=== PATIENT | male | born 1960 | race Two or more races ===

== ENCOUNTER 2024-02-23 09:53 | Outpatient (AMB) | payer MEDICARE, MEDICAID, SELFPAY ==
[2024-02-23 10:38] VITALS: BP 130/83; PULSE 80; RESP 19; TEMP 36.4; O2SAT 97; BMI 40.4
--- NOTE | 2024-02-23 10:38 | ORTHONT_ITS ---
Vital signs 02/23/24 10:38 Height 1.8 m Height Method Stated Weight 130.776 kg Weight Measurement Method Standing Scale BMI 40.4 BP 130/83 Blood Pressure Source Automatic Cuff Blood Pressure Location Right Upper Arm Position Sitting Respiration 19 Pulse 80 Pulse Source Monitor Temp 97.6 F Temp Source Temporal Artery Scan Pulse Oximetry (%) 97 Oxygen Delivery Method Room Air Med/Allergies Allergies & Medications Allergies NKA Allergy (Unknown, Uncoded 02/23/24 10:39) Medication Reconciliation Benazepril Hcl * (LOTENSIN *) 10 mg PO HS #0 tabs 11/03/13 [History Confirmed 02/23/24] Diclofenac Sodium/Misoprostol (Diclofenac-Misoprost 75-0.2 Tb) 1 tab PO QAM ##0 11/03/13 [History Confirmed 02/23/24] Doxazosin Mesylate 8 mg PO QPM ##0 11/03/13 [History Confirmed 02/23/24] finasteride 5 mg tablet 5 mg PO HS ##0 11/03/13 [History Confirmed 02/23/24] apixaban 5 mg tablet (Eliquis) 5 mg PO BID #30 tabs 03/07/21 [Rx Confirmed 02/23/24] amiodarone 200 mg tablet 200 mg PO QDAY 09/15/23 [History Confirmed 02/23/24] amlodipine 2.5 mg tablet 2.5 mg PO QDAY 09/15/23 [History Confirmed 02/23/24] atorvastatin 40 mg tablet 40 mg PO QDAY 09/15/23 [History Confirmed 02/23/24] ezetimibe 10 mg tablet 10 mg PO QDAY 09/15/23 [History Confirmed 02/23/24] hydrochlorothiazide 50 mg tablet 50 mg PO Q OTHER DAY 09/15/23 [History Confirmed 02/23/24] metoprolol succinate 50 mg capsule sprinkle, ext. release 24 hr 50 mg PO QDAY 09/15/23 [History Confirmed 02/23/24] Subjective Visit Visit for: follow up visit and knee Immunization / Flu Flu Vaccine in the Last 12 Months: Yes Flu Vaccine Exclusion Criteria: Already Received History of Present Illness Chief complaint: PRE-OP Ab is a pleasant 62-year-old male with right knee pain. He has a history of a left total knee replacement as well as a left hip replacement. He has been having pain for quite a while. He had a scope in 2004. He has had 1 injection in the past which helped for over a year. He reports the pain is terrible. The last injection only lasted for 3 weeks. Patient is using a walker because of the pain. He has lost 4 pounds since we last saw him Personal History Occupation: RETIRED Hobbies: NONE Red flag PMH: none Pain Pain level (0-10): 8 Pain duration: CONSTANT Pain location: inside (medial), outside (lateral), anterior and posterior Pain quality: sharp, dull and aching Pain timing: increases with activity and stairs Associated signs & symptoms: none Ambulatory data Ambulatory device: walker Treatments Number of previous injections: 1 Improvement with previous injections: No Improvement with PT: No Improvement with NSAIDS: n/a Review of Systems Review of Systems: All systems negative unless otherwise noted in HPI. Exam Exam Patient is in no acute distress and is cooperative with the examination today. Breathing is nonlabored. Patient has a normal mood and affect. Bilateral extremities were evaluated and demonstrates sensation intact to light touch. Palpable pedal pulses are present. No significant edema is present. Bilateral hips were examined. The patient has no pain with log roll of the hips. Internal rotation to 30 degrees and external rotation to 30 degrees is painless. Negative FADIR. Left knee was examined today.Incision is clean dry intact. Range of motion 0 to 110 degrees The right knee was also examined. The right knee is in [varus] alignment. Range of motion from [0-115] degrees. Knee is stable to varus and valgus as well as AP translation with <5mm. Patient has a [negative] [place]. There is [no] pain with patellofemoral compression and [no] crepitus noted. The knee is [tender] to palpation [medially]. X-rays demonstrate significant right joint space narrowing medially. There is complete obliteration of the joint space. Assessment and Plan Problem List (1) Arthritis of right knee: Status: Acute Plan: Patient is a 62-year-old male with severe right knee arthritis and varus deformity. We discussed nonoperative And operative options. He is failed conservative treatment including injections and Tylenol. He cannot take anti- inflammatories because of his blood thinner. He is walker dependent and is using a brace at this time. We thus discussed total knee replacement is a reasonable option. He was able to obtain cardiac clearance. He is also stopped his Eliquis 4 days before surgery The nature and purpose of the total knee replacement, alternative method(s) of treatment, the material risks involved, and the possibility of complications were fully explained to the patient. The patient does NOT have any of the following contraindications to TKA: - Active infection of the knee joint, OR - Active systemic bacteremia, OR - Active skin infection or open wound at surgical site, OR - Neuropathic arthritis, OR - Severe, rapidly progressive neurological disease, OR - Severe medical condition that makes risks of surgery outweigh the potential benefit The patient was told the most common risks and complications associated with a total knee replacement include, but are not limited to: blood clots in the leg, fatal pulmonary embolism, dislocation of the prosthesis, intraoperative and postoperative fractures of the femur or tibia, infection, failure of the prosthesis or grafting materials, complications from anesthesia, reactions to blood transfusions, postoperative leg length inequality, instability of the knee replacement, nerve damage or injury, vascular injury, delayed wound healing, infection, other injury or even . In addition, there are risks associated with anesthesia given during this operation. Also, the patient was told that after undergoing a total knee replacement there may still be persistent pain or disability. The patient was informed that the success of this operation in part depends upon the mechanical devices which are going to be implanted and that these devices can fail or malfunction, and may need to be repaired or replaced and there are no guarantees as to the longevity of this device or its parts and that it or its parts could fail prematurely. The patient was also notified that during the course of surgery, there may be a need to use bone graft from donors, and that any bone graft used will be carefully screened for communicable diseases, including AIDS, hepatitis, Rolf-Creutzfeldt, or other diseases, but despite the screening procedures, there is a small chance that they could contract one of these diseases. Finally, the patient was asked to follow completely and fully with all advice and recommended treatments, and that recovery and ultimate outcome are affected by their compliance with recommended treatment. We discussed the risks, benefits and treatment alternatives, and the patient is interested in proceeding with surgery. We will try to set this up as expeditiously as possible. Office Procedures GNS Level of Care Nursing/Assessment Patient Status: Established Patient Nursing Assessment/Reassesment: Medication Reconciliation, Update PMH in EMR and Vital Signs Coordination of Care: Complex Care and Chronic Disease 1-5, Education Complex Pt/Fam, Consent,records obtained, informed consent, Results/Orders obtained and Staff clarify orders Established Patient Charge Established Patient Point Assignment: 95 Established Patient Point Charge: EP Level 3 (80-115) Past Medical History Past Medical History Have you ever been diagnosed with any of the following: Cardiology Problems Hypertension: Yes Respiratory Problems Smoking: No Smoking Exposure: No
== END 2024-02-23 11:03 | disposition home or self-care (01) ==
LOC: HODSRG 09:53
PROVIDERS: PCP Internal Medicine; Referring Provider Internal Medicine; Supervising Provider Orthopaedic Surgery Adult Reconstructive Orthopaedic Surgery; Visit Provider Orthopaedic Surgery Adult Reconstructive Orthopaedic Surgery
DX: M17.11 Unilateral primary osteoarthritis, right knee (principal); M21.161 Varus deformity, not elsewhere classified, right knee; Z96.652 Presence of left artificial knee joint; Z96.642 Presence of left artificial hip joint; I10 Essential (primary) hypertension
CPT/HCPCS: 99213; G0463

== ENCOUNTER → 2024-02-26 | Outpatient (CLI) | payer BC, SELFPAY ==
--- NOTE | 2024-02-26 08:51 | XR_ITS ---
Examination: CT right lower extremity, without contrast. 2-D sagittal reconstructions. 2-D coronal reconstructions. 3-D reconstructions. Date and time of exam:February 26, 2024 1012 hours INDICATIONS: Right knee pain several years CTDI: vol (mGy):30.21 DLP: (mGycm):1203 Technique: Multiple 1.25 mm axial sections of the right lower extremity without intravenous contrast have been obtained. 2-D sagittal and coronal reconstructions have been obtained. 3-D reconstructions have been obtained. Low dose protocols were performed. One or more of the following dose reduction techniques were used; automated exposure control, adjustment of the mA and/or KV according to patient size, use of iterative reconstruction technique. Findings: Significant osteopenia Mild to moderate narrowing right hip joint No right hip fracture or dislocation, no avascular necrosis Advanced right knee tricompartment osteoarthritis, severe narrowing medial joint space No fracture No patellar dislocation IMPRESSION: Severe right knee tricompartment osteoarthritis
== END | disposition home or self-care (01) ==
PROVIDERS: PCP Internal Medicine; Referring Provider Orthopaedic Surgery Adult Reconstructive Orthopaedic Surgery; Visit Provider Orthopaedic Surgery Adult Reconstructive Orthopaedic Surgery
DX: M17.11 Unilateral primary osteoarthritis, right knee (principal)
CPT/HCPCS: 73700

== ENCOUNTER → 2024-03-08 | Outpatient (CLI) | payer MEDICARE, SELFPAY ==
--- NOTE | 2024-03-08 12:30 | XR_ITS ---
Examination: CT right lower extremity, without contrast. 2-D sagittal reconstructions. 2-D coronal reconstructions. 3-D reconstructions. Date and time of exam:March 08, 2024 1314 hours INDICATIONS: Right knee osteoarthritis pain years CTDI: vol (mGy):15.4 DLP: (mGycm):1278 Technique: Multiple 1.25 mm axial sections of the right lower extremity without intravenous contrast have been obtained. 2-D sagittal and coronal reconstructions have been obtained. 3-D reconstructions have been obtained. Low dose protocols were performed. One or more of the following dose reduction techniques were used; automated exposure control, adjustment of the mA and/or KV according to patient size, use of iterative reconstruction technique. Findings: Severe osteopenia Mild to moderate narrowing right hip joint No right hip fracture or dislocation, no avascular necrosis Severe right knee tricompartment osteoarthritis No acute fracture No avascular necrosis IMPRESSION: Severe right knee tricompartment osteoarthritis
== END | disposition home or self-care (01) ==
PROVIDERS: PCP Internal Medicine; Referring Provider Orthopaedic Surgery Adult Reconstructive Orthopaedic Surgery; Visit Provider Orthopaedic Surgery Adult Reconstructive Orthopaedic Surgery
DX: M17.11 Unilateral primary osteoarthritis, right knee (principal)
CPT/HCPCS: 73700

== ENCOUNTER 2024-03-09 05:40 | Day surgery (SDC) | payer MEDICARE, SELFPAY ==
[2024-03-04 09:35] VITALS: BMI 40.1
--- NOTE | 2024-03-04 09:54 | EKG_ITS ---
[facility] Test Date: 2024-03-04 Pat Name: MELODY WAYNE Department: Room: - Gender: Male Broom Man: DENYS : 1960 Requested By: Robel Stephens Order Number: [id number] Reading MD: Robel Stephens Measurements Intervals [place] Rate: 72 P: 3 OK: 166 QRS: -28 QRSD: 118 T: 10 QT: 397 QTc: 436 Interpretive Statements SINUS RHYTHM BORDERLINE LEFT AXIS DEVIATION LOW QRS VOLTAGE IN PRECORDIAL LEADS PATTERN CONSISTENT WITH PULMONARY DISEASE MODERATE INTRAVENTRICULAR CONDUCTION DELAY No previous ECG available for comparison /store/S0/[id number].pdf
[2024-03-04 11:50] LABS: Basophils # (Auto) 0.1 Thou/mm3 (0.0-0.2); Basophils % (Auto) 1 % (0-2.5); Eosinophils # (Auto) 0.2 Thou/mm3 (0.0-0.5); Eosinophils % (Auto) 2 % (0-10); Hematocrit 38.8 % (41.0-53.0); Immature Granulocytes % (Auto) 0 % (0-0); Immature Granulocytes Auto 0.02 Thou/mm3 (0.00-0.00); Lymphocytes # (Auto) 1.6 Thou/mm3 (1.0-4.8); Lymphocytes % (Auto) 22 % (10-50); Mean Corpuscular HGB Conc 33.5 g/dl (31.0-37.0); Mean Corpuscular Volume 92 fL (80-100); Monocytes # (Auto) 0.6 Thou/mm3 (0.0-0.8); Monocytes % (Auto) 9 % (0-12); Neutrophils # (Auto) 4.6 Thou/mm3 (1.8-7.7); Neutrophils % (Auto) 66 % (37-80); Nucleated Red Blood Cell % 0 /100 WBC (0); Platelet Count 270 Thou/mm3 (140-440); RDW Standard Deviation 43.7 fL (35.1-43.9)
[2024-03-04 11:53] LABS: Partial Thromboplastin Time 26.6 Seconds (22.0-36.0); Prothrombin Time 11.3 Seconds (9.0-12.2)
[2024-03-04 12:03] LABS: Alanine Aminotransferase 12 U/L (10-49); Albumin, Serum 4.9 gm/dL (3.4-4.8); Alkaline Phosphatase 141 U/L (46-116); Anion Gap 6 (7-16); Aspartate Amino Transferase 13 U/L (0-34); BUN/Creatinine Ratio 13 Ratio (12-20); Bilirubin,Total 0.7 mg/dL (0.3-1.2); Blood Urea Nitrogen 13 mg/dL (9-23); Calcium 9.3 mg/dL (8.3-10.6); Calcium (Corrected) 9.3 mg/dL (8.5-10.1); Carbon Dioxide 25.7 mMol/L (20.0-31.0); Chloride 105 mMol/L (98-107); Estimated Creatinine Clearance 102.9 mL/min (>60); Globulin 2.4 gm/dL (2.3-3.5); Glucose 82 mg/dL (74-106); Osmolality,Calculated 272 (275-295); Potassium 3.7 mMol/L (3.4-5.1); Sodium 137 mMol/L (136-145); Total Protein 7.3 gm/dL (5.7-8.2); eGFR > 60 See Note
--- NOTE | 2024-03-08 14:29 | SUR.PREOP ---
Cardiac history and records reviewed with Dr Stephens.
[2024-03-09] VITALS (16 sets, daily range): BP systolic 100–151; BP diastolic 67–92; PULSE 74–95; RESP 12–18; TEMP 36.3–36.8; O2SAT 95–99; BMI 40.0
[2024-03-09] MEDS: PREGABALIN 75 MG CAPSULE PO (06:28)
[2024-03-09] MEDS: ACETAMINOPHEN 325 MG TABLET 650 MG PO (06:28)
[2024-03-09] MEDS: MELOXICAM 7.5 MG TABLET PO (06:28)
[2024-03-09] MEDS: RINGERS LACTATED 1000 ML 1,000 ML 20 ML IV (06:31)
--- NOTE | 2024-03-09 07:15 | CHAP ---
Gave a word of encouragement and prayer.
--- NOTE | 2024-03-09 09:32 | SUR.OPER ---
IMPLANTS: JUAN TRIATHLON X3 TIBIAL BEARING INSERT- REF: [id number] LOT: [id number] JESSE: 6 TYP: TOM THKNS: 16 MM EXP: 04/05/28 X 1 IMPLANT JUAN [employer] TRITANIUM TIBIAL COMPONENTS REF:[id number] LOT: [id number] JESSE:#6 EXP. 12/22/28 X 1 IMPLANT
--- NOTE | 2024-03-09 09:41 | SUR.OPER ---
(Marianne) updated on case status/progress via phone by Claire GARCIA at approx. [phone].
--- NOTE | 2024-03-09 10:06 | SUR.PHASEI ---
Addendum entered by Betina Maciel RN 03/09/24 11:13: post spinal anesthesia assessment, patient has dermatome sensation at L1-groin, will monitor patient Original Note: 1006 Patient arrived to recovery resting comfortably in [facility], awake and talking with staff, oxygen therapy initiated nasal cannula 2L, breathing unlabored, vital signs stable, denies pain, dressing intact to right knee; prineo, abd, webril, noble wraps, no bleeding noted, bilateral dorsalis pedis pulses present when palpated, post patient has good circulation to right lower extremity; skin color normal for patient, warm to touch, lung sounds clear upon auscultation, report received from Dr. Stephens and Leander GARCIA
--- NOTE | 2024-03-09 10:14 | ESOP_ITS ---
Date of Procedure 03/09/24 Pre Op Diagnosis Right knee osteoarthritis Post Op Diagnosis Right knee osteoarthritis Procedure Indication: The patient is a 63 year old who has a long history of right knee pain. X-rays show degenerative arthritis involving the knee. Over the past several years the patient has had increasing pain, progressive limitation in function. He has failed conservative measures including activity modification, physical therapy, injections, anti-inflammatories, and assistive devices. After a lengthy discussion of the risks and benefits, the patient presents now for total knee replacement. The nature and purpose of the total knee replacement, alternative method(s) of treatment, the material risks involved, and the possibility of complications were fully explained to the patient. The patient was told the most common risks and complications associated with a total knee replacement include, but are not limited to blood clots in the leg, fatal pulmonary embolism, dislocation of the prosthesis, intraoperative and postoperative fractures of the femur or tibia, infection, failure of the prosthesis or grafting materials, complications from anesthesia, reactions to blood transfusions, postoperative leg length inequality, instability of the knee replacement, nerve damage or injury, vascular injury, delayed wound healing, infections, other injury or even . In addition, there are risks associated with anesthesia given during this operation, temporary or permanent numbness on the skin lateral to the incision can be a complication unique to total knee surgery, and kneeling can be painful after knee replacement surgery. Also, the patient was told that after undergoing a total knee replacement there may still be pain or disability. We discussed with the patient that we will be using a robot-assisted technology. We discussed that there is a possibility of converting to manual instrumentation. The patient was informed that the success of this operation in part depends upon the mechanical devices which are going to be implanted and that these devices can fail or malfunction, and may need to be repaired or replaced and there are no guarantees as to the longevity of this device or its part and that it or its parts could fail prematurely. Finally, the patient was asked to follow completely and fully with all advice and recommended treatments, and that recovery and ultimate outcome are affected by their compliance with recommended treatment. Surgical technique: Patient was marked and consented in the pre-operative area. The patient was brought to the operating room and placed on the operating table in a supine position. Prior to positioning, a timeout procedure was performed between the surgeon, the anesthesiologist, and the nursing staff where the patient and the operative side were identified and confirmed. After adequate general anesthetic was obtained, the right lower extremity was prepped and draped in the usual sterile fashion. A weight based dose of Cefazolin were administered within 1 hour prior to incision. The robot was preregistered and calirated before the incision. The extremity was exsanguinated with an esmarch badge and tourniquet inflated to 250mmHg. A midline incision was made. A median parapatellar arthrotomy was made. The patella was subluxed laterally. A medial release was performed to expose the medial tibia. His femoral and tibial pins were placed through an intra incisional manner for both cases. Every effort was made to ensure that the distalmost aspect of the pin was hung in the second cortex. The arrays were then tightened several times to ensure that it was fixed for the remainder of the case. Both femoral and tibial checkpoints were then placed. We then went through the registration process of the bone. We then assessed the knee deformity and attempted to correct it. We also used the robot to aid in judging laxity in both extension and flexion. Final based on laxity and alignment we changed the preoperative assessment to obtain proper proper implant positioning and to correct deformity. Attention was then placed to the tibia. We made a tibial cut using the robot ensuring that both the MCL and the patella tendon were protected with retractors. THe tibial cut was larger than normal to account for the large tibial defect. We then went to the femur and made the posterior cut followed by the anterior cut and the anterior chamfer. The bone was then removed and we made a distal femur cut and a posterior chamfer cut. We verified all cuts. A trial reduction was performed with a size 5 femoral component and a size 6 keeled tibial component. The patella was cut and sized to a 39. The patella tracked centrally, and no lateral retinacular release was necessary. The trial implants were removed. The arrays, pins, and checkpoints were all removed. We performed a verification that all pins were removed. The cut bone surfaces were lavaged. A size 5 right femoral component, a size 6 keeled tibial component, and a size 39 patella were impacted into position. The knee was felt to be well balanced in the sagittal and coronal plane. The final [2x12] mm cruciate-substituting articular insert was impacted into the tibial tray. The knee was brought out to full extension, flexed up to 120 degrees. It was stable to varus and valgus stress and appropriately balanced in flexion and extension. The wounds were copiously irrigated following deflation of tourniquet. The medial retinaculum was reapproximated with #1 vicryl and quill. The subcutaneous tissues were closed with 0 and 2-0 interrupted Vicryl. The skin was closed with 3-0 Monofilament V loc suture. A sterile dressing was applied. The patient was transferred to a bed and brought to recovery in stable condition. The patient tolerated the procedure well. There were no intraoperative complications. Sponge and needle counts were correct times 2. As the attending surgeon, I attramos I was present and performed the entire operation. Grafts/Implants Size 5 CR Femur Size 6 Tibia 16mm poly CS 49mm patella Findings full thickness cartialge loss and osteophytes Implants frances Pathology / specimen None Pathology comment: none Estimated Blood Loss 150 Condition Stable Disposition same day Surgeon Brian Mock MD Surgical Staff Operation Date: 03/09/24 07:30 Case Staff Anesthesiologist: Robel Stephens RNwarp bleaching vat tender: Aggie Lauren
--- NOTE | 2024-03-09 10:18 | XR_ITS ---
Examination: Knee, right , 3 views Technique: Knee AP, lateral, oblique 3 views Date and time of exam: March 09, 2024 1036 hours INDICATIONS: Postop knee replacement today. FINDINGS: Total right knee replacement Satisfactory alignment Moderate osteopenia No fracture IMPRESSION: Total right knee arthroplasty with satisfactory alignment
--- NOTE | 2024-03-09 10:40 | SUR.PHASEI ---
1040 XRAY complete per MD order
--- NOTE | 2024-03-09 10:51 | SUR.PHASEI ---
1058 patient ate a jello and drinking apple juice
--- NOTE | 2024-03-09 10:57 | SUR.PHASEI ---
patients family update on patient condition and they states they were running errands and would be back to the hospital in an hour or so
[2024-03-09] MEDS: DICLOFENAC SODIUM 75 MG PO (11:12)
--- NOTE | 2024-03-09 11:50 | SUR.PHASEII ---
pt awake, alert, able to follow commands, breathing unlabored, dressing to right lower extremity clean, dry, and intact, report from Betina Felix RN
--- NOTE | 2024-03-09 12:27 | SUR.PHASEII ---
Report to Betina Felix RN
--- NOTE | 2024-03-09 12:34 | SUR.PHASEII ---
1234 PT called as patient post spinal anesthesia is complete, patient has dermatome sensation at S2 perineum
--- NOTE | 2024-03-09 12:37 | SUR.PHASEII ---
1150 Report given to Betina Phillips RN
--- NOTE | 2024-03-09 13:04 | SUR.PHASEII ---
1304 patient voided 100ml in urinal
--- NOTE | 2024-03-09 13:05 | SUR.PHASEII ---
1305 Patient cleared by Physical therapist Dung to proceed with discharge
--- NOTE | 2024-03-09 13:34 | SUR.PHASEII ---
1334 Patient meets discharge criteria from recovery, awake and alert, breathing unlabored, vital signs stable, denies pain, dressing intact; no bleeding noted, patient voided in urinal prior to discharge, denies nausea, patient assisted with dressing into his clothing by this medical technical writer, discharge instructions given to patient and patients daughter and , daughter signed discharge instructions. Patient given all her belongings prior to discharge, transported via wheelchair and left in a private vehicle.
--- NOTE | 2024-03-12 13:43 | PD.ANESPROG ---
Documentation for date of: 03/12/24 POST ANESTHESIA NOTE: Patient had spinal anesthesia and R adductor block for R TKA on 03/09/24. I just called his number for follow up but no answer. Robel Stephens MD Anesthesia Progress Note Progress Note Most recent Vital Signs: Last Vital Signs Temp 97.3 F 03/09/24 12:21 Pulse 91 03/09/24 13:06 Resp 17 03/09/24 13:06 BP 151/92 H 03/09/24 13:06 Pulse Ox 99 03/09/24 13:06 O2 Flow Rate 2 03/09/24 10:51
== END 2024-03-09 13:34 | disposition home or self-care (01) ==
PROVIDERS: Anesthesiology; PCP Internal Medicine; Referring Provider Orthopaedic Surgery Adult Reconstructive Orthopaedic Surgery; Visit Provider Orthopaedic Surgery Adult Reconstructive Orthopaedic Surgery
PROC: (CPT 27447; principal; 2024-03-09 07:30)
DX: M17.11 Unilateral primary osteoarthritis, right knee (principal); Z01.810 Encounter for preprocedural cardiovascular examination
CPT/HCPCS: 27447; 20985; 36415; 73560; 80053; 85025; 85610; 85730; 93005; 97162; A4217; C1713; C1776; J0171; J0690; J1100; J1200; J1885; J2250; J2371; J2704; J2795; J3010; J3490; J7030; J7120; A4648; A4649; A9270

== ENCOUNTER 2024-03-22 09:58 | Outpatient (AMB) | payer MEDICARE, MEDICAID, SELFPAY ==
[2024-03-22 10:38] VITALS: BP 97/59; PULSE 78; RESP 19; TEMP 36.3; O2SAT 97; BMI 40.2
--- NOTE | 2024-03-22 10:38 | PD.ORTHCLVIS ---
Vital signs 03/22/24 10:38 Height 1.8 m Height Method Stated Weight 130.379 kg Weight Measurement Method Standing Scale BMI 40.2 BP 97/59 L Blood Pressure Source Automatic Cuff Blood Pressure Location Left Upper Arm Position Sitting Respiration 19 Pulse 78 Pulse Source Monitor Temp 97.4 F Temp Source Temporal Artery Scan Pulse Oximetry (%) 97 Oxygen Delivery Method Room Air Med/Allergies Allergies & Medications Allergies No Known Allergies Allergy (Verified 03/22/24 10:38) Medication Reconciliation Benazepril Hcl * (LOTENSIN *) 40 mg PO HS #0 tabs 11/03/13 [History Confirmed 03/22/24] Doxazosin Mesylate 8 mg PO QPM ##0 11/03/13 [History Confirmed 03/22/24] finasteride 5 mg tablet 5 mg PO HS ##0 11/03/13 [History Confirmed 03/22/24] amiodarone 200 mg tablet 200 mg PO QDAY 09/15/23 [History Confirmed 03/22/24] amlodipine 2.5 mg tablet 5 mg PO QDAY 09/15/23 [History Confirmed 03/22/24] atorvastatin 40 mg tablet 80 mg PO QDAY 09/15/23 [History Confirmed 03/22/24] hydrochlorothiazide 50 mg tablet 50 mg PO Q OTHER DAY 09/15/23 [History Confirmed 03/22/24] metoprolol succinate 50 mg capsule sprinkle, ext. release 24 hr 50 mg PO QDAY 09/15/23 [History Confirmed 03/22/24] apixaban 5 mg tablet (Eliquis) 5 mg PO BID 03/04/24 [History Confirmed 03/22/24] diclofenac sodium 75 mg tablet,delayed release 75 mg PO DAILY 03/04/24 [History Confirmed 03/22/24] acetaminophen 500 mg tablet (Acetaminophen Extra Strength) 1,000 mg (2 x 500 mg) PO Q6H PRN pain #90 tabs 03/09/24 [Rx Confirmed 03/22/24] apixaban 2.5 mg tablet (Eliquis) 2.5 mg PO BID #28 tabs 03/09/24 [Rx Confirmed 03/22/24] cefadroxil 500 mg capsule 500 mg PO BID #14 caps 03/09/24 [Rx Confirmed 03/22/24] gabapentin 300 mg capsule 300 mg PO .qhs #30 caps 03/09/24 [Rx Confirmed 03/22/24] oxycodone 5 mg tablet 5 mg PO Q6H PRN pain #28 tabs 03/09/24 [Rx Confirmed 03/22/24] sennosides 8.6 mg-docusate sodium 50 mg tablet (Senna-S) 1 tab-cap PO QDAY #30 tabs 03/09/24 [Rx Confirmed 03/22/24] cyclobenzaprine 5 mg tablet 5 mg PO QHS PRN muscle spasm #30 tabs 03/22/24 [Rx] Exam Exam Patient is in no acute distress and is cooperative with the examination today. Breathing is nonlabored. Patient has a normal mood and affect. Bilateral extremities were evaluated and demonstrates sensation intact to light touch. Palpable pedal pulses are present. No significant edema is present. Bilateral hips were examined. The patient has no pain with log roll of the hips. Internal rotation to 30 degrees and external rotation to 30 degrees is painless. Negative FADIR. Right knee knee was examined today.Incision is clean dry intact. In the middle of the incision, there is a 1 cm area where there is not complete skin approximation. It Is only by couple millimeters Range of motion 0 to 110 degrees. Assessment and Plan Problem List (1) History of total right knee replacement: Status: Acute Plan: Patient is doing well status post right total knee replacement. We will continue to watch him closely. He has mild drainage of the right knee and we will continue to watch it. We applied Steri-Strips and recommend compression. It has almost stopped but if it should increase or if he continues that this is worrisome. I will see him back in approximately 7 days for wound check Office Procedures GNS Level of Care Nursing/Assessment Patient Status: Established Patient Nursing Assessment/Reassesment: Medication Reconciliation, Update PMH in EMR and Vital Signs Coordination of Care: Complex Care and Chronic Disease 1-5, Education Complex Pt/Fam, Consent,records obtained, informed consent, Results/Orders obtained and Staff clarify orders Established Patient Charge Established Patient Point Assignment: 95 Established Patient Point Charge: EP Level 3 (80-115) MA Intake Visit Data Collection New Patient or Established: Established Patient (seen at [facility] within 3 years) Reason for Visit:: 2 WEEK POST OP RIGHT TKA Seen by Clinical Staff ONLY (RN/MA): No Retail Sales Vitamin Consultant Required: No PCP or OBGYN visit in last 3 months: Yes Hx Now: No Do You Feel Safe at Home: Yes Authorities Contacted: N/A Questionairres Past Medical History Past Medical History Have you ever been diagnosed with any of the following: Neurological Problems Seizures: No Cardiology Problems Atrial Fibrillation: Yes Hypercholesterolemia: Yes Congestive Heart Failure: No Hypertension: Yes Respiratory Problems Chronic Obstructive Pulmonary Disease (COPD): No Smoking: No Smoking Exposure: No Stomache/Intestinal Problems Hepatitis: No Obesity: Yes Genital/Urinary Problems Renal Disease: No Benign Prostatic Hyperplasia: Yes Musculoskeletal Problems Arthritis: Yes Endocrine Problems Diabetes Mellitus Type 1: No Diabetes Mellitus Type 2: No Other Problems Hospitalization: Yes (surgery) Shingles: Yes Blood Transfusions: No Blood Transfusion Reaction: No Anesthesia Reactions: No Chicken Pox: Yes Cancer: No Subjective Visit Visit for: follow up visit Immunization / Flu Flu Vaccine in the Last 12 Months: No Flu Vaccine Exclusion Criteria: No Exclusion Criteria History of Present Illness Chief complaint: Status post total knee replacement Ab is 2 weeks postop status post total knee replacement. He had some scant drainage on the right knee. It has almost stopped completely. There is still is a little bit of drainage. He reports the pants and been on for the entire day and I do see a couple droplets on it. He is on Eliquis and is on 2-1/2 mg. We discussed that this could be contributing to this Pain Pain level (0-10): 6 Pain duration: ALL DAY Pain location: inside (medial) Pain quality: sharp, dull and aching Pain timing: increases with activity Associated signs & symptoms: none Ambulatory data Ambulatory device: walker Treatments Improvement with previous injections: No Improvement with PT: No Improvement with NSAIDS: no Review of Systems Review of Systems: All systems negative unless otherwise noted in HPI.
== END 2024-03-22 11:19 | disposition home or self-care (01) ==
LOC: HODSRG 09:58
PROVIDERS: PCP Internal Medicine; Referring Provider Internal Medicine; Supervising Provider Orthopaedic Surgery Adult Reconstructive Orthopaedic Surgery; Visit Provider Orthopaedic Surgery Adult Reconstructive Orthopaedic Surgery
DX: Z96.651 Presence of right artificial knee joint (principal); I10 Essential (primary) hypertension; E78.00 Pure hypercholesterolemia, unspecified; I48.91 Unspecified atrial fibrillation
CPT/HCPCS: 99213; G0463

== ENCOUNTER 2024-04-01 11:03 | Outpatient (AMB) | payer MEDICARE, SELFPAY ==
[2024-04-01 11:07] VITALS: BP 98/62; PULSE 88; RESP 18; TEMP 35.9; O2SAT 97; BMI 39.4
--- NOTE | 2024-04-01 11:07 | PD.ORTHCLVIS ---
Vital signs 04/01/24 11:07 Height 1.8 m Height Method Stated Weight 127.658 kg Weight Measurement Method Standing Scale BMI 39.4 BP 98/62 Blood Pressure Source Automatic Cuff Blood Pressure Location Left Upper Arm Position Sitting Respiration 18 Pulse 88 Pulse Source Monitor Temp 96.6 F L Temp Source Temporal Artery Scan Pulse Oximetry (%) 97 Oxygen Delivery Method Room Air Med/Allergies Allergies & Medications Allergies No Known Allergies Allergy (Verified 04/01/24 11:07) Medication Reconciliation Benazepril Hcl * (LOTENSIN *) 40 mg PO HS #0 tabs 11/03/13 [History Confirmed 04/01/24] Doxazosin Mesylate 8 mg PO QPM ##0 11/03/13 [History Confirmed 04/01/24] finasteride 5 mg tablet 5 mg PO HS ##0 11/03/13 [History Confirmed 04/01/24] amiodarone 200 mg tablet 200 mg PO QDAY 09/15/23 [History Confirmed 04/01/24] amlodipine 2.5 mg tablet 5 mg PO QDAY 09/15/23 [History Confirmed 04/01/24] atorvastatin 40 mg tablet 80 mg PO QDAY 09/15/23 [History Confirmed 04/01/24] hydrochlorothiazide 50 mg tablet 50 mg PO Q OTHER DAY 09/15/23 [History Confirmed 04/01/24] metoprolol succinate 50 mg capsule sprinkle, ext. release 24 hr 50 mg PO QDAY 09/15/23 [History Confirmed 04/01/24] apixaban 5 mg tablet (Eliquis) 5 mg PO BID 03/04/24 [History Confirmed 04/01/24] diclofenac sodium 75 mg tablet,delayed release 75 mg PO DAILY 03/04/24 [History Confirmed 04/01/24] acetaminophen 500 mg tablet (Acetaminophen Extra Strength) 1,000 mg (2 x 500 mg) PO Q6H PRN pain #90 tabs 03/09/24 [Rx Confirmed 04/01/24] apixaban 2.5 mg tablet (Eliquis) 2.5 mg PO BID #28 tabs 03/09/24 [Rx Confirmed 04/01/24] cefadroxil 500 mg capsule 500 mg PO BID #14 caps 03/09/24 [Rx Confirmed 04/01/24] gabapentin 300 mg capsule 300 mg PO .qhs #30 caps 03/09/24 [Rx Confirmed 04/01/24] oxycodone 5 mg tablet 5 mg PO Q6H PRN pain #28 tabs 03/09/24 [Rx Confirmed 04/01/24] sennosides 8.6 mg-docusate sodium 50 mg tablet (Senna-S) 1 tab-cap PO QDAY #30 tabs 03/09/24 [Rx Confirmed 04/01/24] cyclobenzaprine 5 mg tablet 5 mg PO QHS PRN muscle spasm #30 tabs 03/22/24 [Rx Confirmed 04/01/24] sulfamethoxazole 800 mg-trimethoprim 160 mg tablet (Bactrim DS) 2 tab PO bid 10 days #40 tabs 04/01/24 [Rx] Exam Exam Patient is in no acute distress and is cooperative with the examination today. Breathing is nonlabored. Patient has a normal mood and affect. Bilateral extremities were evaluated and demonstrates sensation intact to light touch. Palpable pedal pulses are present. No significant edema is present. Bilateral hips were examined. The patient has no pain with log roll of the hips. Internal rotation to 30 degrees and external rotation to 30 degrees is painless. Negative FADIR. Right knee knee was examined today.Incision is clean dry intact. Incision is clean dry and intact at this point. There is mild erythema but it looks like it is in the normal range for a postop knee Assessment and Plan Problem List (1) History of total right knee replacement: Status: Acute Plan: Patient is doing well status post right total knee replacement. This wound looks significantly better. The drainage is stopped. We we will give him a prescription for antibiotics for short-term her size is very worried about infection. We discussed the risk benefits of giving him this. I discussed with him that I think that this actually is very normal but he would like antibiotics just in case which I think is fine. We will see him back in approximately 2 weeks for wound check Office Procedures GNS Level of Care Nursing/Assessment Patient Status: Established Patient Nursing Assessment/Reassesment: Medication Reconciliation, Update PMH in EMR and Vital Signs Coordination of Care: Complex Care and Chronic Disease 1-5, Education Complex Pt/Fam, Consent,records obtained, informed consent, 1 Ins Authorization, Results/Orders obtained and Staff clarify orders Established Patient Charge Established Patient Point Assignment: 110 Established Patient Point Charge: EP Level 3 (80-115) MA Intake Visit Data Collection New Patient or Established: Established Patient (seen at [facility] within 3 years) Reason for Visit:: FOLLOW UP Seen by Clinical Staff ONLY (RN/MA): No Homicide Squad Sergeant Required: No PCP or OBGYN visit in last 3 months: Yes Hx Now: No Do You Feel Safe at Home: Yes Authorities Contacted: N/A Questionairres Past Medical History Past Medical History Have you ever been diagnosed with any of the following: Neurological Problems Seizures: No Cardiology Problems Atrial Fibrillation: Yes Hypercholesterolemia: Yes Congestive Heart Failure: No Hypertension: Yes Respiratory Problems Chronic Obstructive Pulmonary Disease (COPD): No Smoking: No Smoking Exposure: No Stomache/Intestinal Problems Hepatitis: No Obesity: Yes Genital/Urinary Problems Renal Disease: No Benign Prostatic Hyperplasia: Yes Musculoskeletal Problems Arthritis: Yes Endocrine Problems Diabetes Mellitus Type 1: No Diabetes Mellitus Type 2: No Other Problems Hospitalization: Yes (surgery) Shingles: Yes Blood Transfusions: No Blood Transfusion Reaction: No Anesthesia Reactions: No Chicken Pox: Yes Cancer: No Subjective Visit Visit for: follow up visit Immunization / Flu Flu Vaccine in the Last 12 Months: No Flu Vaccine Exclusion Criteria: No Exclusion Criteria History of Present Illness Chief complaint: Status post total knee replacement Ab is 2 weeks postop status post total knee replacement. He had some scant drainage on the right knee. He reports of a bit of pain. The drainage has stopped completely. Pain Pain level (0-10): 2 Pain duration: ON AND OFF Pain location: inside (medial) Pain quality: aching Pain timing: increases with activity Associated signs & symptoms: none Ambulatory data Ambulatory device: cane Treatments Improvement with previous injections: No Improvement with PT: No Improvement with NSAIDS: no Review of Systems Review of Systems: All systems negative unless otherwise noted in HPI.
== END 2024-04-01 11:22 | disposition home or self-care (01) ==
LOC: HODSRG 11:03
PROVIDERS: PCP Internal Medicine; Referring Provider Internal Medicine; Supervising Provider Orthopaedic Surgery Adult Reconstructive Orthopaedic Surgery; Visit Provider Orthopaedic Surgery Adult Reconstructive Orthopaedic Surgery
DX: Z96.651 Presence of right artificial knee joint (principal); I10 Essential (primary) hypertension; E78.00 Pure hypercholesterolemia, unspecified; I48.91 Unspecified atrial fibrillation
CPT/HCPCS: 99213; G0463

== ENCOUNTER 2024-05-10 13:05 | Outpatient (AMB) | payer MEDICARE, SELFPAY ==
[2024-05-10 13:45] VITALS: BP 120/75; PULSE 79; RESP 18; TEMP 36.4; O2SAT 97; BMI 38.2
--- NOTE | 2024-05-10 13:45 | PD.ORTHCLVIS ---
Vital signs 05/10/24 13:45 Height 1.8 m Height Method Stated Weight 123.887 kg Weight Measurement Method Standing Scale BMI 38.2 BP 120/75 Blood Pressure Source Automatic Cuff Blood Pressure Location Left Upper Arm Position Sitting Respiration 18 Pulse 79 Pulse Source Monitor Temp 97.5 F Temp Source Temporal Artery Scan Pulse Oximetry (%) 97 Oxygen Delivery Method Room Air Med/Allergies Allergies & Medications Allergies No Known Allergies Allergy (Verified 05/10/24 13:46) Medication Reconciliation Benazepril Hcl * (LOTENSIN *) 40 mg PO HS #0 tabs 11/03/13 [History Confirmed 05/10/24] Doxazosin Mesylate 8 mg PO QPM ##0 11/03/13 [History Confirmed 05/10/24] finasteride 5 mg tablet 5 mg PO HS ##0 11/03/13 [History Confirmed 05/10/24] amiodarone 200 mg tablet 200 mg PO QDAY 09/15/23 [History Confirmed 05/10/24] amlodipine 2.5 mg tablet 5 mg PO QDAY 09/15/23 [History Confirmed 05/10/24] atorvastatin 40 mg tablet 80 mg PO QDAY 09/15/23 [History Confirmed 05/10/24] hydrochlorothiazide 50 mg tablet 50 mg PO Q OTHER DAY 09/15/23 [History Confirmed 05/10/24] metoprolol succinate 50 mg capsule sprinkle, ext. release 24 hr 50 mg PO QDAY 09/15/23 [History Confirmed 05/10/24] apixaban 5 mg tablet (Eliquis) 5 mg PO BID 03/04/24 [History Confirmed 05/10/24] Held on 03/09/24. Instructions: Resume on 03/23/24. Take eliquis 2.5 mg for 14 days then resume full dose of 5mg diclofenac sodium 75 mg tablet,delayed release 75 mg PO DAILY 03/04/24 [History Confirmed 05/10/24] acetaminophen 500 mg tablet (Acetaminophen Extra Strength) 1,000 mg (2 x 500 mg) PO Q6H PRN pain #90 tabs 03/09/24 [Rx Confirmed 05/10/24] apixaban 2.5 mg tablet (Eliquis) 2.5 mg PO BID #28 tabs 03/09/24 [Rx Confirmed 05/10/24] cefadroxil 500 mg capsule 500 mg PO BID #14 caps 03/09/24 [Rx Confirmed 05/10/24] gabapentin 300 mg capsule 300 mg PO .qhs #30 caps 03/09/24 [Rx Confirmed 05/10/24] oxycodone 5 mg tablet 5 mg PO Q6H PRN pain #28 tabs 03/09/24 [Rx Confirmed 05/10/24] sennosides 8.6 mg-docusate sodium 50 mg tablet (Senna-S) 1 tab-cap PO QDAY #30 tabs 03/09/24 [Rx Confirmed 05/10/24] cyclobenzaprine 5 mg tablet 5 mg PO QHS PRN muscle spasm #30 tabs 03/22/24 [Rx Confirmed 05/10/24] ibuprofen 600 mg tablet 600 mg PO Q8H PRN pain #60 tabs 05/10/24 [Rx] pregabalin 75 mg capsule 75 mg PO BID #60 caps 05/10/24 [Rx] Exam Exam Patient is in no acute distress and is cooperative with the examination today. Breathing is nonlabored. Patient has a normal mood and affect. Bilateral extremities were evaluated and demonstrates sensation intact to light touch. Palpable pedal pulses are present. No significant edema is present. Bilateral hips were examined. The patient has no pain with log roll of the hips. Internal rotation to 30 degrees and external rotation to 30 degrees is painless. Negative FADIR. Right knee knee was examined today. Incision is clean dry intact. He is doing well. There is no erythema. Range of motion 0 to 110 degrees. There is a scab on the distal one third of the incision Assessment and Plan Problem List (1) History of total right knee replacement: Status: Acute Plan: Patient is doing well status post right total knee replacement. His wound looks great. Still has some pain in his knee. He never started physical therapy. I think he will benefit from physical therapy. We will see him back in approximately 4 weeks for motion check. He should also get x-rays Office Procedures GNS Level of Care Nursing/Assessment Patient Status: Established Patient Nursing Assessment/Reassesment: Medication Reconciliation, Update PMH in EMR and Vital Signs Coordination of Care: Complex Care and Chronic Disease 1-5, Education Complex Pt/Fam, Consent,records obtained, informed consent, Results/Orders obtained and Staff clarify orders Established Patient Charge Established Patient Point Assignment: 95 Established Patient Point Charge: EP Level 3 (80-115) MA Intake Visit Data Collection New Patient or Established: Established Patient (seen at [facility] within 3 years) Reason for Visit:: R TKA F/U 2 MONTHS Seen by Clinical Staff ONLY (RN/MA): No Ad Writer Required: No PCP or OBGYN visit in last 3 months: Yes Hx Now: No Do You Feel Safe at Home: Yes Authorities Contacted: N/A Questionairres Past Medical History Past Medical History Have you ever been diagnosed with any of the following: Neurological Problems Seizures: No Cardiology Problems Atrial Fibrillation: Yes Hypercholesterolemia: Yes Congestive Heart Failure: No Hypertension: Yes Respiratory Problems Chronic Obstructive Pulmonary Disease (COPD): No Smoking: No Smoking Exposure: No Stomache/Intestinal Problems Hepatitis: No Obesity: Yes Genital/Urinary Problems Renal Disease: No Benign Prostatic Hyperplasia: Yes Musculoskeletal Problems Arthritis: Yes Endocrine Problems Diabetes Mellitus Type 1: No Diabetes Mellitus Type 2: No Other Problems Hospitalization: Yes (surgery) Shingles: Yes Blood Transfusions: No Blood Transfusion Reaction: No Anesthesia Reactions: No Chicken Pox: Yes Cancer: No Subjective Visit Visit for: follow up visit and knee Immunization / Flu Flu Vaccine in the Last 12 Months: No Flu Vaccine Exclusion Criteria: No Exclusion Criteria History of Present Illness Chief complaint: Status post total knee replacement Ab is 2 weeks postop status post total knee replacement. He had drainage of his right knee recently but it has stopped for quite a while. He reports the right knee is somewhat painful still. He continues to improve. He never started physical therapy as he originally declined. He has some stiffness Pain Pain level (0-10): 7 Pain duration: ON AND OFF Pain location: outside (lateral) and posterior Pain quality: dull and aching Pain timing: night, increases with activity and stairs Associated signs & symptoms: none Ambulatory data Ambulatory device: walker Treatments Improvement with previous injections: No Improvement with PT: No Improvement with NSAIDS: no Review of Systems Review of Systems: All systems negative unless otherwise noted in HPI.
--- NOTE | 2024-05-10 14:04 | XR_ITS ---
Examination: Right knee 4 views TECHNIQUE: AP AP standing in flexion No loosening of the prosthetic components No fracture lateral axial right knee 4 views standing Exam date and time: May 10, 2024 1423 hours INDICATIONS: Postop knee pain beginning 2 months ago. FINDINGS: Mild osteopenia Total right knee arthroplasty. Satisfactory alignment IMPRESSION: Total right knee arthroplasty with satisfactory alignment
== END 2024-05-10 14:14 | disposition home or self-care (01) ==
LOC: HODSRG 13:05
PROVIDERS: PCP Internal Medicine; Referring Provider Internal Medicine; Supervising Provider Orthopaedic Surgery Adult Reconstructive Orthopaedic Surgery; Visit Provider Orthopaedic Surgery Adult Reconstructive Orthopaedic Surgery
DX: Z96.651 Presence of right artificial knee joint (principal); I10 Essential (primary) hypertension; E78.00 Pure hypercholesterolemia, unspecified; I48.91 Unspecified atrial fibrillation
CPT/HCPCS: 73564; 99213; G0463

== ENCOUNTER 2024-06-24 10:58 | Outpatient (AMB) | payer MEDICARE, SELFPAY ==
--- NOTE | 2024-06-24 11:40 | ORTHONT_ITS ---
Vital signs 06/24/24 11:41 Height 1.8 m Height Method Stated Weight 127.233 kg Weight Measurement Method Standing Scale BMI 39.2 BP 116/71 Blood Pressure Source Automatic Cuff Blood Pressure Location Left Upper Arm Position Sitting Respiration 18 Pulse 100 Pulse Source Monitor Temp 97.7 F Temp Source Temporal Artery Scan Pulse Oximetry (%) 96 Oxygen Delivery Method Room Air Med/Allergies Allergies & Medications Allergies No Known Allergies Allergy (Verified 06/24/24 11:49) Medication Reconciliation Benazepril Hcl * (LOTENSIN *) 40 mg PO HS #0 tabs 11/03/13 [History Confirmed 06/24/24] Doxazosin Mesylate 8 mg PO QPM ##0 11/03/13 [History Confirmed 06/24/24] finasteride 5 mg tablet 5 mg PO HS ##0 11/03/13 [History Confirmed 06/24/24] amiodarone 200 mg tablet 200 mg PO QDAY 09/15/23 [History Confirmed 06/24/24] amlodipine 2.5 mg tablet 5 mg PO QDAY 09/15/23 [History Confirmed 06/24/24] atorvastatin 40 mg tablet 80 mg PO QDAY 09/15/23 [History Confirmed 06/24/24] hydrochlorothiazide 50 mg tablet 50 mg PO Q OTHER DAY 09/15/23 [History Confirmed 06/24/24] metoprolol succinate 50 mg capsule sprinkle, ext. release 24 hr 50 mg PO QDAY 09/15/23 [History Confirmed 06/24/24] apixaban 5 mg tablet (Eliquis) 5 mg PO BID 03/04/24 [History Confirmed 06/24/24] Held on 03/09/24. Instructions: Resume on 03/23/24. Take eliquis 2.5 mg for 14 days then resume full dose of 5mg diclofenac sodium 75 mg tablet,delayed release 75 mg PO DAILY 03/04/24 [History Confirmed 06/24/24] acetaminophen 500 mg tablet (Acetaminophen Extra Strength) 1,000 mg (2 x 500 mg) PO Q6H PRN pain #90 tabs 03/09/24 [Rx Confirmed 06/24/24] apixaban 2.5 mg tablet (Eliquis) 2.5 mg PO BID #28 tabs 03/09/24 [Rx Confirmed 06/24/24] cefadroxil 500 mg capsule 500 mg PO BID #14 caps 03/09/24 [Rx Confirmed 06/24/24] oxycodone 5 mg tablet 5 mg PO Q6H PRN pain #28 tabs 03/09/24 [Rx Confirmed 06/24/24] sennosides 8.6 mg-docusate sodium 50 mg tablet (Senna-S) 1 tab-cap PO QDAY #30 tabs 03/09/24 [Rx Confirmed 06/24/24] cyclobenzaprine 5 mg tablet 5 mg PO QHS PRN muscle spasm #30 tabs 03/22/24 [Rx Confirmed 06/24/24] ibuprofen 600 mg tablet 600 mg PO Q8H PRN pain #60 tabs 05/10/24 [Rx Confirmed 06/24/24] pregabalin 75 mg capsule 75 mg PO BID #60 caps 05/10/24 [Rx Confirmed 06/24/24] gabapentin 300 mg capsule 300 mg PO .qhs #30 caps 06/10/24 [Rx Confirmed 06/24/24] gabapentin 300 mg capsule 300 mg PO BID #60 caps 06/24/24 [Rx] Exam Exam Patient is in no acute distress and is cooperative with the examination today. Breathing is nonlabored. Patient has a normal mood and affect. Bilateral extremities were evaluated and demonstrates sensation intact to light touch. Palpable pedal pulses are present. No significant edema is present. Bilateral hips were examined. The patient has no pain with log roll of the hips. Internal rotation to 30 degrees and external rotation to 30 degrees is painless. Negative FADIR. Right knee knee was examined today. Incision is clean dry intact. He is doing well. There is no erythema. Range of motion 0 to 110 degrees. There is a scab on the distal one third of the incision Right knee x-rays demonstrate total knee replacement good alignment position. It is cementless Assessment and Plan Problem List (1) History of total right knee replacement: Status: Acute Plan: Patient is doing well status post right total knee replacement. His wound looks great. He is doing great and his motion is now fantastic. We will see him in approximately 2 months for routine follow-up Office Procedures GNS Level of Care Nursing/Assessment Patient Status: Established Patient Nursing Assessment/Reassesment: Medication Reconciliation, Update PMH in EMR and Vital Signs Coordination of Care: Complex Care and Chronic Disease 1-5, Education Complex Pt/Fam, Consent,records obtained, informed consent, Results/Orders obtained and Staff clarify orders Established Patient Charge Established Patient Point Assignment: 95 Established Patient Point Charge: EP Level 3 (80-115) MA Intake Visit Data Collection New Patient or Established: Established Patient (seen at [facility] within 3 years) Reason for Visit:: F/U XRAY RESULTS PCP or OBGYN visit in last 3 months: Yes Hx Now: No Do You Feel Safe at Home: Yes Authorities Contacted: N/A Questionairres Past Medical History Past Medical History Have you ever been diagnosed with any of the following: Neurological Problems Seizures: No Cardiology Problems Atrial Fibrillation: Yes Hypercholesterolemia: Yes Congestive Heart Failure: No Hypertension: Yes Respiratory Problems Chronic Obstructive Pulmonary Disease (COPD): No Smoking: No Smoking Exposure: No Stomache/Intestinal Problems Hepatitis: No Obesity: Yes Genital/Urinary Problems Renal Disease: No Benign Prostatic Hyperplasia: Yes Musculoskeletal Problems Arthritis: Yes Endocrine Problems Diabetes Mellitus Type 1: No Diabetes Mellitus Type 2: No Other Problems Hospitalization: Yes (surgery) Shingles: Yes Blood Transfusions: No Blood Transfusion Reaction: No Anesthesia Reactions: No Chicken Pox: Yes Cancer: No Subjective Visit Visit for: follow up visit and x-rays Immunization / Flu Flu Vaccine in the Last 12 Months: No Flu Vaccine Exclusion Criteria: No Exclusion Criteria History of Present Illness Chief complaint: Status post total knee replacement Ab is 2 weeks postop status post total knee replacement. He had drainage of his right knee recently but it has stopped for quite a while. He reports the right knee is somewhat painful still. He continues to improve. His range of motion has improved significantly as well Pain Pain level (0-10): 0 Pain duration: ON AND OFF Pain location: outside (lateral) and posterior Pain quality: dull and aching Pain timing: night, increases with activity and stairs Associated signs & symptoms: none Ambulatory data Ambulatory device: cane Treatments Improvement with previous injections: No Improvement with PT: No Improvement with NSAIDS: no Review of Systems Review of Systems: All systems negative unless otherwise noted in HPI.
[2024-06-24 11:41] VITALS: BP 116/71; PULSE 100; RESP 18; TEMP 36.5; O2SAT 96; BMI 39.2
== END 2024-06-24 11:52 | disposition home or self-care (01) ==
LOC: HODSRG 10:58
PROVIDERS: PCP Internal Medicine; Referring Provider Internal Medicine; Supervising Provider Orthopaedic Surgery Adult Reconstructive Orthopaedic Surgery; Visit Provider Orthopaedic Surgery Adult Reconstructive Orthopaedic Surgery
DX: Z96.651 Presence of right artificial knee joint (principal); I10 Essential (primary) hypertension; E78.00 Pure hypercholesterolemia, unspecified; I48.91 Unspecified atrial fibrillation
CPT/HCPCS: 99213; G0463

== ENCOUNTER → 2024-07-08 | Outpatient (CLI) | payer MEDICARE, SELFPAY ==
--- NOTE | 2024-07-08 09:06 | XR_ITS ---
Examination:Right hip AP, lateral, AP pelvis 3 views Technique: Hip AP lateral, AP pelvis, 3 views Exam date and time:July 08, 2024 10:22 AM Comparison January 25, 2020 INDICATIONS: Chronic right hip pain years. FINDINGS: Moderate to advanced right hip osteoarthritis. No right hip fracture or dislocation Left hip bipolar hemiarthroplasty with satisfactory alignment IMPRESSION: Moderate to advanced right hip osteoarthritis.
--- NOTE | 2024-07-08 09:06 | XR_ITS ---
Examination: Lumbar spine, 5 views Technique: Lumbar spine AP, lateral, coned lateral lower lumbar spine, bilateral obliques 5 views Exam date and time: July 08, 2024 1022 hours Comparison May 23, 2019 INDICATIONS: Low back pain years. FINDINGS: Cholelithiasis Prominent lumbar spondylosis Diffuse advanced facet arthropathy Diffuse advanced lumbar disc narrowing No spondylolisthesis IMPRESSION: Diffuse advanced lumbar degenerative disc disease with significant spinal stenosis
== END | disposition home or self-care (01) ==
PROVIDERS: PCP Internal Medicine; Referring Provider Internal Medicine; Visit Provider Internal Medicine
DX: M51.369 Other intervertebral disc degeneration, lumbar region without mention of lumbar back pain or lower extremity pain (principal); M48.061 Spinal stenosis, lumbar region without neurogenic claudication; M16.11 Unilateral primary osteoarthritis, right hip
CPT/HCPCS: 72110; 73502

== ENCOUNTER → 2024-09-10 | Outpatient (CLI) | payer MEDICARE, SELFPAY ==
--- NOTE | 2024-09-10 15:30 | XR_ITS ---
Examination: MRI lumbar spine without contrast Date and time of exam: September 10, 2024 1545 hours INDICATIONS: Low back pain radiating down the right buttock and right leg numbness and paresthesias in the right leg months Technique: Multiple MRI axial and sagittal sections lumbar spine. Sagittal T2-weighted images, TR 3500, TE 118 T1 weighted transverse sections, TR 688 T8.5, T2-weighted sagittal sections T1 weighted sagittal sections TR 621, TE 30 T2 axial sections, TR 4, 190, TE 84. Findings: Adequate alignment lumbar vertebral bodies on the lateral view No lumbar fracture Diffuse moderate lumbar degenerative disc disease. Diffuse lumbar disc desiccation No spondylolisthesis L5-S1 6 mm central lumbar disc bulge contiguous with the right S1 nerve root extending to the bilateral foramina, mild left moderate right L5 ganglionic compression L4-L5 6 mm central lumbar disc bulge contiguous with the right and left S1 nerve roots L3-L4 5 mm left foraminal disc bulge producing mild left L3 ganglionic compression L2-L3 foraminal disc bulges but no ganglionic compression L1-L2 foraminal disc bulges but no ganglionic compression IMPRESSION: Diffuse moderate lumbar degenerative disc disease L5-S1 6 mm central lumbar disc bulge contiguous with the right S1 nerve root extending to the foramina, mild left moderate right L5 ganglionic compression L4-L5 6 mm and lumbar disc bulge contiguous with the right and left L5 nerve roots L3-L4 5 mm left foraminal disc bulge mild left L3 ganglionic compression
== END | disposition home or self-care (01) ==
LOC: SMRI 14:54
PROVIDERS: PCP Internal Medicine; Referring Provider Internal Medicine; Visit Provider Internal Medicine
DX: M51.360 Other intervertebral disc degeneration, lumbar region with discogenic back pain only (principal); M51.370 Other intervertebral disc degeneration, lumbosacral region with discogenic back pain only; G95.20 Unspecified cord compression
CPT/HCPCS: 72148

== ENCOUNTER 2024-10-04 10:53 | Outpatient (AMB) | payer MEDICARE, SELFPAY ==
--- NOTE | 2024-10-04 11:38 | PD.ORTHCLVIS ---
Vital signs 10/04/24 11:40 Height 1.8 m Height Method Stated Weight 119.833 kg Weight Measurement Method Standing Scale BMI 37.0 BP 120/73 Blood Pressure Source Automatic Cuff Blood Pressure Location Left Upper Arm Position Sitting Respiration 18 Pulse 83 Pulse Source Monitor Temp 98.6 F Temp Source Temporal Artery Scan Pulse Oximetry (%) 95 Oxygen Delivery Method Room Air Med/Allergies Allergies & Medications Allergies No Known Allergies Allergy (Verified 10/04/24 11:50) Medication Reconciliation Benazepril Hcl * (LOTENSIN *) 40 mg PO HS #0 tabs 11/03/13 [History Confirmed 10/04/24] Doxazosin Mesylate 8 mg PO QPM ##0 11/03/13 [History Confirmed 10/04/24] finasteride 5 mg tablet 5 mg PO HS ##0 11/03/13 [History Confirmed 10/04/24] amiodarone 200 mg tablet 200 mg PO QDAY 09/15/23 [History Confirmed 10/04/24] amlodipine 2.5 mg tablet 5 mg PO QDAY 09/15/23 [History Confirmed 10/04/24] atorvastatin 40 mg tablet 80 mg PO QDAY 09/15/23 [History Confirmed 10/04/24] hydrochlorothiazide 50 mg tablet 50 mg PO Q OTHER DAY 09/15/23 [History Confirmed 10/04/24] metoprolol succinate 50 mg capsule sprinkle, ext. release 24 hr 50 mg PO QDAY 09/15/23 [History Confirmed 10/04/24] apixaban 5 mg tablet (Eliquis) 5 mg PO BID 03/04/24 [History Confirmed 10/04/24] Held on 03/09/24. Instructions: Resume on 03/23/24. Take eliquis 2.5 mg for 14 days then resume full dose of 5mg diclofenac sodium 75 mg tablet,delayed release 75 mg PO DAILY 03/04/24 [History Confirmed 10/04/24] acetaminophen 500 mg tablet (Acetaminophen Extra Strength) 1,000 mg (2 x 500 mg) PO Q6H PRN pain #90 tabs 03/09/24 [Rx Confirmed 10/04/24] apixaban 2.5 mg tablet (Eliquis) 2.5 mg PO BID #28 tabs 03/09/24 [Rx Confirmed 10/04/24] cefadroxil 500 mg capsule 500 mg PO BID #14 caps 03/09/24 [Rx Confirmed 10/04/24] oxycodone 5 mg tablet 5 mg PO Q6H PRN pain #28 tabs 03/09/24 [Rx Confirmed 10/04/24] sennosides 8.6 mg-docusate sodium 50 mg tablet (Senna-S) 1 tab-cap PO QDAY #30 tabs 03/09/24 [Rx Confirmed 10/04/24] cyclobenzaprine 5 mg tablet 5 mg PO QHS PRN muscle spasm #30 tabs 03/22/24 [Rx Confirmed 10/04/24] ibuprofen 600 mg tablet 600 mg PO Q8H PRN pain #60 tabs 05/10/24 [Rx Confirmed 10/04/24] pregabalin 75 mg capsule 75 mg PO BID #60 caps 05/10/24 [Rx Confirmed 10/04/24] gabapentin 300 mg capsule 300 mg PO .qhs #30 caps 06/10/24 [Rx Confirmed 10/04/24] gabapentin 300 mg capsule 300 mg PO BID #60 caps 06/24/24 [Rx Confirmed 10/04/24] Exam Exam Patient is in no acute distress and is cooperative with the examination today. Breathing is nonlabored. Patient has a normal mood and affect. Bilateral extremities were evaluated and demonstrates sensation intact to light touch. Palpable pedal pulses are present. No significant edema is present. Bilateral hips were examined. The patient has no pain with log roll of the hips. Internal rotation to 30 degrees and external rotation to 30 degrees is painless. Negative FADIR. Right knee knee was examined today. Incision is clean dry intact. He is doing well. There is no erythema. Range of motion 0 to 110 degrees. There is a scab on the distal one third of the incision Right knee x-rays demonstrate total knee replacement good alignment position. It is cementless Right lumbar spine MRI demonstrates multilevel issues from L4-S1. There is significant disc herniations. Assessment and Plan Problem List (1) History of total right knee replacement: Status: Acute Plan: Patient is doing well status post right total knee replacement. He has moderate hip arthritis. He has no pain in his groin. The pain appears to be from his back and radiates down his legs. We recommend that he see a spine doctor especially given the findings on his MRI Office Procedures GNS Level of Care Nursing/Assessment Patient Status: Established Patient Nursing Assessment/Reassesment: Medication Reconciliation, Update PMH in EMR and Vital Signs Coordination of Care: Complex Care and Chronic Disease 1-5, Education Complex Pt/Fam, Consent,records obtained, informed consent, Results/Orders obtained and Staff clarify orders Established Patient Charge Established Patient Point Assignment: 95 Established Patient Point Charge: EP Level 3 (80-115) MA Intake Visit Data Collection New Patient or Established: Established Patient (seen at [facility] within 3 years) Reason for Visit:: F/U TKA Seen by Clinical Staff ONLY (RN/MA): No Product Safety Lead Required: No PCP or OBGYN visit in last 3 months: Yes Hx Now: No Do You Feel Safe at Home: Yes Authorities Contacted: N/A Questionairres Past Medical History Past Medical History Have you ever been diagnosed with any of the following: Neurological Problems Cerebrovascular Accident (CVA): No Transient Ischemic Attacks (TIA): No Dementia: No Alzheimer's Disease: No Parkinson's Disease: No Brain Tumor: No Meningitis: No Seizures: No Epilepsy: No Multiple Sclerosis: No Cerebral Palsy: No Amyotrophic Lateral Sclerosis (ALS/Kerri Gehrig's): No Guillain-[place] Syndrome: No Spina Bifida: No Paralysis: No Peripheral Neuropathy: No Brito's Palsy: No Subdural Hematoma: No Migraine: No Head Trauma: No Spinal Cord Injury: No Traumatic Brain Injury: No Cardiology Problems Myocardial Infarction: No Cardiac Arrhythmia: No Atrial Fibrillation: Yes Angina: No Heart Murmur: No Coronary Artery Disease: No Atherosclerotic Heart Disease: No Peripheral Vascular Disease: No Hypercholesterolemia: Yes Aneurysm: No Congestive Heart Failure: No Congenital Heart Disease: No Valvular Heart Disease: No Rheumatic Fever: No Cardiomyopathy: No Edema: No Pericarditis: No Cellulitis: No Deep Vein Thrombosis: No Hypertension: Yes Hypotension: No Varicose Veins: No Respiratory Problems Chronic Obstructive Pulmonary Disease (COPD): No Asthma: No Bronchitis: No Emphysema: No Pneumonia: No Pulmonary Fibrosis: No Tuberculosis: No Pulmonary Embolism: No Pulmonary Edema: No Sleep Apnea: No CPAP Dependent: No Respiratory Aspiration: No Dyspnea: No Orthopnea: No Hx Cough: No Cough: No Wheezing: No Chest Deformities: No Smoking: No Smoking Cessation Counseling: No Smoking Exposure: No Tobacco Use: No Clubbing: No Exposure to Respiratory Irritants: No Intubation: No Stomache/Intestinal Problems Liver Cancer: No Hepatitis: No Cirrhosis: No Pancreatic Cancer: No Pancreatitis: No Celiac Disease: No Gall Bladder Disease: No Gastrointestinal Bleed: No Esophageal Varices: No Penaloza's Esophagus: No Colitis: No Ulcerative Colitis: No Diverticulitis: No Diverticulosis: No Ulcer: No Colorectal Cancer: No Irritable Bowel: No Crohn's Disease: No Obstructive Bowel: No Hiatal Hernia: No Hemorrhoids: No Gastroesophageal Reflux Disease: No Polyps: No Obesity: Yes Genital/Urinary Problems Chronic Kidney Disease: No Renal Disease: No Kidney Stones: No Polycystic Kidney Disease: No Neurogenic Bladder: No Inguinal Hernia: No Dialysis: No Prostate Cancer: No Benign Prostatic Hyperplasia: Yes Reproductive Problems Breast Cancer: No Fibroids: No Genital Herpes: No Gonorrhea: No Syphilis: No Testicular Cancer: No Musculoskeletal Problems Muscular Dystrophy: No Myasthenia Gravis: No Marfan's Syndrome: No Bone Cancer: No Arthritis: Yes Rheumatoid Arthritis: No Osteoporosis: No Degenerative Disk Disease: No Gout: No Scoliosis: No Carpal Tunnel Syndrome: No Fibromyalgia: No Fractures: No Degenerative Joint Disease: No Osteomyelitis: No Poliovirus: No Head,Eye,Nose,Throat Problems Cataracts: No Glaucoma: No Blind: No Retinal Detachment: No Macular Degeneration: No Chronic Ear Infections: No Deafness: No Eye Prosthesis: No Endocrine Problems Diabetes Mellitus Type 1: No Diabetes Mellitus Type 2: No Hypoglycemia: No [place]'s Syndrome: No Mower's Disease: No Hyperthyroidism: No Hypothyroidism: No Thyroid Cancer: No Parathyroid Disease: No Pituitary Disease: No Systemic Lupus Erythematosus: No Syndrome of Inappropriate Antidiuretic Hormone: No Adrenal Disease: No Graves' Disease: No Blood Problems Anemia: No Leukemia: No Hemophilia: No Thalassemia: No Sickle Cell Disease: No Clotting Problems: No Psychologic Problems Schizophrenia: No Recreational Drug Use: No Bipolar Disorder: No Depression: No Anxiety: No Behavior Problems: No Self-Mutilation: No Attention Deficit Disorder: No Attention Deficit Hyperactivity Disorder: No Depression: No Post Traumatic Stress Disorder: No Eating Disorder: No Other Problems Hospitalization: Yes (surgery) Autoimmune Disease: No Down Syndrome: No Autism: No Developmental Delay: No Cosmetic Surgery: No Shingles: Yes Falls: No Blood Transfusions: No Blood Transfusion Reaction: No Anesthesia Reactions: No Organ Transplant: No Chemotherapy: No Radiation Therapy: No Hyperbaric Therapy: No MRSA: No VRSA: No Vancomycin-Resistant Enterococci: No Human Immunodeficiency Virus (HIV): No Chicken Pox: Yes Measles: No Mumps: No Rubella (Telugu Measles): No Pertussis: No Klebsiella Pneumoniae Carbapenemase Producing Bacteria: No Clostridium Difficile: No Hepatitis A: No Hepatitis B: No Hepatitis C: No Communicable Disease: No Cancer: No Lung Cancer: No Surgical History Angioplasty: No Appendectomy: No Bariatric Surgery: No Breast Surgery: No Cancer Surgery: No Carotid Endarterectomy: No Cholecystectomy: No Colectomy: No Colostomy: No Coronary Artery Bypass Graft: No Valve Replacement: No Herniorrhaphy: No Total Hip Replacement: No Total Knee Replacement: No Pacemaker: No Sinus Surgery: No Splenectomy: No Thyroidectomy: No Ureter Stent: No Subjective Visit Visit for: follow up visit and x-rays Immunization / Flu Flu Vaccine in the Last 12 Months: No Flu Vaccine Exclusion Criteria: No Exclusion Criteria History of Present Illness Chief complaint: Status post total knee replacement Ab is 7 monthspostop status post total knee replacement. He is doing well and reports no pain at all in his knee. His pain is bad radiates down his leg. He has no pain in his groin. Pain Pain level (0-10): 0 Pain duration: ON AND OFF Pain location: outside (lateral) and posterior Pain quality: dull and aching Pain timing: night, increases with activity and stairs Associated signs & symptoms: none Ambulatory data Ambulatory device: cane Treatments Improvement with previous injections: No Improvement with PT: No Improvement with NSAIDS: no Review of Systems Review of Systems: All systems negative unless otherwise noted in HPI.
[2024-10-04 11:40] VITALS: BP 120/73; PULSE 83; RESP 18; TEMP 37; O2SAT 95; BMI 37.0
== END 2024-10-04 11:55 | disposition home or self-care (01) ==
LOC: HODSRG 10:53
PROVIDERS: PCP Internal Medicine; Referring Provider Internal Medicine; Supervising Provider Orthopaedic Surgery Adult Reconstructive Orthopaedic Surgery; Visit Provider Orthopaedic Surgery Adult Reconstructive Orthopaedic Surgery
DX: Z96.651 Presence of right artificial knee joint (principal); M16.9 Osteoarthritis of hip, unspecified
CPT/HCPCS: 99213; G0463